=== PATIENT | female | born 1960 | race Caucasian/White ===

== ENCOUNTER → 2018-04-06 11:51 | Outpatient (CLI) | payer BC, SELFPAY ==
--- NOTE | 2018-04-06 11:55 | BI_ITS ---
MAMMOGRAPHY - BILATERAL SCREENING REASON FOR EXAM: Female, 57 years old. Routine annual screening examination. PERTINENT HISTORY: Non-contributory. TECHNIQUE: Digital bilateral breast crispin (3D mammographic acquisition) in the CC and MLO projections. 2-D mediolateral oblique (MLO) and craniocaudad (CC) views of both breasts were obtained. CAD: Full Field Digital Mammography with Computer Added Detection was performed. COMPARISON: Comparison is made with prior study dated February 02, 2016 and December 31, 2014. FINDINGS: Breast Composition: The breasts are heterogeneously dense, which may obscure small masses. There are no dominant masses or suspicious calcifications. No other significant abnormalities are identified. There has been no significant change since the prior study. BI/SCREENING MAMM (CAD), BILAT IMPRESSION: Stable bilateral screening mammogram. Yearly follow-up mammogram recommended. (A) ASSESSMENT CATEGORY: BIRADS Category 1: Negative. A letter regarding these results will be sent to the patient by the facility within 30 days. Approximately 10% of breast cancers are not detected by mammography. A normal mammogram should not delay biopsy of a clinically suspicious abnormality. [id number] Electronically Signed: Miguel Silva MD at 11:27 EST Tel [phone], Service support ,
--- OUTSIDE RECORDS SUMMARY | 2018-05-31 19:56 | XMS RPT_ITS ---
:1960 Author Organization [facility] Care Team Providers Name Role Phone Sada Black Attending Unavailable Sada Black Referring Unavailable Sada Black Primary Care Unavailable PROBLEMS PROBLEMS No Problem Records FoundPROCEDURES PROCEDURES No Procedure Records FoundRESULTS RESULTS SCREENING MAMM (CAD), Observed: 04/06/2018 Status: F Source: [place] 11:55 AM [facility] REPOSITORY [facility] Imaging Services [address] [place] [address] SCREENING MAMM (CAD), BILAT MR#: [id number] Acct: [id number] Name: ITALO MCLEAN Rep #: [id number] : 1960 F 57 From: Miguel Silva MD PCP: Sada Black DO Status: REG CLI Study: SCREENING MAMM (CAD), BILAT Date of Exam: 04/06/18 Exam# [id number] Ordering Dr: Sada Black DO MAMMOGRAPHY - BILATERAL SCREENING REASON FOR EXAM: Female, 57 years old. Routine annual screening examination. PERTINENT HISTORY: Non-contributory. TECHNIQUE: Digital bilateral breast crispin (3D mammographic acquisition) in the CC and MLO projections. 2-D mediolateral oblique (MLO) and craniocaudad (CC) views of both breasts were obtained. CAD: Full Field Digital Mammography with Computer Added Detection was performed. COMPARISON: Comparison is made with prior study dated February 02, 2016 and December 31, 2014. FINDINGS: Breast Composition: The breasts are heterogeneously dense, which may obscure small masses. There are no dominant masses or suspicious calcifications. No other significant abnormalities are identified. There has been no significant change since the prior study. BI/SCREENING MAMM (CAD), BILAT IMPRESSION: Stable bilateral screening mammogram. Yearly follow-up mammogram recommended. (A) ASSESSMENT CATEGORY: BIRADS Category 1: Negative. A letter regarding these results will be sent to the patient by the facility within 30 days. Approximately 10% of breast cancers are not detected by mammography. A normal mammogram should not delay biopsy of a clinically suspicious abnormality. [id number] Electronically Signed: Miguel Silva MD at 11:27 EST Tel [phone], Service support , CC: Sada Black DO Senior Security Architect: Signed ALLERGIES ALLERGIES DATE TYPE / CODE NAME / CODE REACTION SEVERITY SOURCE 02/24/2015 Drug Penicillins/F Rash Unknown [facility] Allergy/4160 [id number](RXN Hospital 53282(SNOMED ORM) Repository CT) 02/24/2015 Drug Sulfa Rash Unknown [facility] Allergy/4160 (Sulfonamide Hospital 73074(SNOMED Antibiotics)/ Repository CT) [id number](RX NORM) ENCOUNTERS ENCOUNTERS ADMIT/DISCHARGE ACCOUNT ADMITTING ENCOUNTER LOCATION SOURCE NUMBER CLASS 04/06/2018 [id number] [place] [facility] ing:OPBI Repository PAYERS PAYERS ENCOUNTER GUARANTOR PAYER SUBSCRIBER SOURCE 04/06/2018 FEDE J Primary FEDE J [place] [id number] S [facility] y [place]: [id number] [id number] Repository [address]iz: [address] Date:[id number] [phone] () [id number], [place] [address]SX: 04/06/2018 Secondary NOT GIVENUNK Yesi Insurance:SELF PAY [facility] Number: Effective Repository Date:2018-03-01
== END ==
PROVIDERS: Family Provider Family Medicine; PCP Family Medicine; Referring Provider Family Medicine; Visit Provider Family Medicine
DX: Z12.31 Encounter for screening mammogram for malignant neoplasm of breast (principal)
CPT/HCPCS: 77063; 77067

== ENCOUNTER → 2018-08-07 11:39 | Outpatient (CLI) | payer BC, SELFPAY ==
[2018-08-07 15:44] LABS: Absolute Lymphocyte Count 2.31 X10^3/ul (0.83-4.51); Absolute Neutrophil Count 5.2 X10^3/uL (2.0-7.7); Basophil# 0.04 X10^3/uL; Basophil% 0.5 % (0-1); Eosinophil# 0.26 X10^3/uL; Eosinophils% 3.1 % (0-5); Hematocrit 45.6 % (37-47); Hemoglobin 14.6 g/dl (12.0-15.0); Lymphocyte # 2.31 X10^3/ul (4.0); Lymphocyte % 27.6 % (19-41); Mean Corpuscular Hgb 27.6 pg (27.0-32.0); Mean Corpuscular Volume 86.2 fL (81-99); Mean Platelet Vol. 11.4 fl (6.2-12.0); Monocyte# 0.57 X10^3/uL; Monocyte% 6.8 % (0-10); Neutrophil # 5.16 X10^3/uL (2.7-7.7); Neutrophil % 61.5 % (47-70); Platelet Count 281 K/mm3 (150-450); RBC Distribution Width SD 40.5 fl (35.1-43.9); Red Blood Count 5.29 M/mm3 (4.2-5.4); White Blood Count 8.4 K/mm3 (4.4-11.0)
[2018-08-07 15:49] LABS: POSITIVE COUNT NO; POSITIVE DIFFERENTIAL NO; POSITIVE MORPHOLOGY NO
[2018-08-07 16:06] LABS: Vitamin B12 905 pg/mL (211-911); Vitamin D,25 Hydroxy 13.4 ng/mL (29.95-100.01)
[2018-08-07 16:08] LABS: ALB/GLOB Ratio 1.2 RATIO (0.9-2.4); AST(SGOT) 26 U/L (15-37); Alanine Aminotransfer ALT/SGPT 50 U/L (13-56); Albumin, Serum 4.2 g/dL (3.2-5.0); Alkaline Phosphatase 141 U/L (45-117); Anion Gap 8 (5-15); BUN 13 mg/dL (7-18); BUN/Creat Ratio 16.3 RATIO (10-20); Calcium,Total 9.1 mg/dL (8.5-10.1); Chloride 105 mmol/L (98-107); EST Glomerular Filtration Rate 79 mL/min (>60); Est Glom Filt Rate - Afr Amer 96 mL/min (>60); Free T3 3.5 pg/mL (2.18-3.98); Globulin 3.4 g/dL (2.2-4.2); Glucose 91 mg/dL (74-106); Potassium 4.4 mmol/L (3.5-5.1); Protein, Total 7.6 g/dL (6.4-8.2); Sodium Level 141 mmol/L (136-145); T4 Free Direct 0.85 ng/dL (0.76-1.46); Thyroid Stim Hormone (TSH) 1.43 uIU/mL (0.358-3.74)
== END ==
PROVIDERS: Family Provider Family Medicine; PCP Family Medicine; Visit Provider Family Medicine
DX: E53.8 Deficiency of other specified B group vitamins (principal); E55.9 Vitamin D deficiency, unspecified; D64.9 Anemia, unspecified; R53.83 Other fatigue
CPT/HCPCS: 36415; 80053; 82306; 82607; 84439; 84443; 84481; 85025

== ENCOUNTER → 2019-04-12 08:02 | Outpatient (CLI) | payer BC, SELFPAY ==
--- NOTE | 2019-04-12 08:07 | BI_ITS ---
MAMMOGRAPHY - BILATERAL SCREENING REASON FOR EXAM: Female, 58 years old. Routine annual screening examination. PERTINENT HISTORY: Non-contributory. TECHNIQUE: Digital bilateral breast dawson (3D mammographic acquisition) in the CC and MLO projections. 2-D mediolateral oblique (MLO) and craniocaudad (CC) views of both breasts were obtained. CAD: Full Field Digital Mammography with Computer Added Detection was performed. COMPARISON: Comparison is made with prior study dated April 06, 2018 and February 01, 2017. FINDINGS: Breast Composition: The breasts are heterogeneously dense, which may obscure small masses. There are no dominant masses or suspicious calcifications. No other significant abnormalities are identified. There has been no significant change since the prior study. BI/SCREEN MAMM (CAD) W/DAWSON BILAT IMPRESSION: Stable bilateral screening mammogram. Yearly follow-up mammogram recommended. (A) ASSESSMENT CATEGORY: BIRADS Category 1: Negative. A letter regarding these results will be sent to the patient by the facility within 30 days. Approximately 10% of breast cancers are not detected by mammography. A normal mammogram should not delay biopsy of a clinically suspicious abnormality. [id number] Electronically Signed: Miguel Silva, at 8:43 EST , Service support ,
== END ==
PROVIDERS: Family Provider Family Medicine; PCP Family Medicine; Referring Provider Family Medicine; Visit Provider Family Medicine
DX: Z12.31 Encounter for screening mammogram for malignant neoplasm of breast (principal)
CPT/HCPCS: 77063; 77067

== ENCOUNTER → 2019-09-09 15:54 | Outpatient (CLI) | payer BC, SELFPAY ==
--- NOTE | 2019-09-09 15:57 | CT_ITS ---
STUDY: CT BRAIN WITHOUT CONTRAST REASON FOR EXAM: Female, 59 years old. Headache. Dizziness. RADIATION DOSAGE (If Supplied By Facility): CTDIvol = ( 44.99 ) mGy, DLP = ( 745.49 ) mGycm TECHNIQUE: Transaxial CT imaging of the brain was performed without administration of intravenous contrast material. Individualized dose optimization techniques were used for this CT. COMPARISON: None. FINDINGS: There are bilateral basal ganglia calcifications (best seen on images 33 and 34 series 601). There is no acute bleed or infarct. There are normal white matter tracts. The ventricles are normal in configuration. There is no hydrocephalus. The visualized paranasal sinuses are clear. The mastoid air cells are well aerated. There is no skull fracture. CT/Brain/Head without Contrast IMPRESSION: No acute intracranial abnormality. Electronically Signed: Humberto Burger, at 16:18 EDT Tel , Service support ,
== END ==
PROVIDERS: PCP Family Medicine; Referring Provider Family Medicine; Visit Provider Family Medicine
DX: R51 Headache (principal); R42 Dizziness and giddiness; R20.0 Anesthesia of skin
CPT/HCPCS: 70450

== ENCOUNTER → 2020-02-20 13:37 | Outpatient (CLI) | payer BC, SELFPAY ==
--- NOTE | 2020-02-20 13:42 | BI_ITS ---
MAMMOGRAPHY - BILATERAL SCREENING REASON FOR EXAM: Female, 59 years old. Routine annual screening examination. PERTINENT HISTORY: Non-contributory. TECHNIQUE: Digital bilateral breast dawson (3D mammographic acquisition) in the CC and MLO projections. 2-D mediolateral oblique (MLO) and craniocaudad (CC) views of both breasts were obtained. CAD: Full Field Digital Mammography with Computer Added Detection was performed. COMPARISON: Comparison is made with prior examination dated 04/12/2019 and 04/06/2018. FINDINGS: Breast Composition: The breasts are heterogeneously dense, which may obscure small masses. There are no dominant masses or suspicious calcifications. No other significant abnormalities are identified. There has been no significant change since the prior study. BI/SCREEN MAMM (CAD) W/DAWSON BILAT IMPRESSION: Stable bilateral screening mammogram. Yearly follow-up mammogram recommended. (A) ASSESSMENT CATEGORY: BIRADS Category 1: Negative. A letter regarding these results will be sent to the patient by the facility within 30 days. Approximately 10% of breast cancers are not detected by mammography. A normal mammogram should not delay biopsy of a clinically suspicious abnormality. [id number] Electronically Signed: Miguel Silva, at 14:45 EDT , Service support ,
== END ==
PROVIDERS: PCP Family Medicine; Referring Provider Family Medicine; Visit Provider Family Medicine
DX: Z12.31 Encounter for screening mammogram for malignant neoplasm of breast (principal)
CPT/HCPCS: 77063; 77067

== ENCOUNTER → 2021-04-01 06:58 | Outpatient (CLI) | payer MEDICAID, SELFPAY ==
--- NOTE | 2021-04-01 07:01 | BI_ITS ---
MAMMOGRAPHY - BILATERAL SCREENING REASON FOR EXAM: Female, 60 years old. Routine annual screening examination. PERTINENT HISTORY: Non-contributory. TECHNIQUE: Digital bilateral breast dawson (3D mammographic acquisition) in the CC and MLO projections. 2-D mediolateral oblique (MLO) and craniocaudad (CC) views of both breasts were obtained. CAD: Full Field Digital Mammography with Computer Added Detection was performed. COMPARISON: Comparison is made with prior study dated 02/20/2020 and 04/12/2019. FINDINGS: Breast Composition: The breasts are heterogeneously dense, which may obscure small masses. There are no dominant masses or suspicious calcifications. No other significant abnormalities are identified. There has been no significant change since the prior study. BI/SCRN MAMM (CAD)W/DAWSON BILAT IMPRESSION: Stable bilateral screening mammogram. Yearly follow-up mammogram recommended. (A) ASSESSMENT CATEGORY: BIRADS Category 1: Negative. A letter regarding these results will be sent to the patient by the facility within 30 days. Approximately 10% of breast cancers are not detected by mammography. A normal mammogram should not delay biopsy of a clinically suspicious abnormality. [id number] Electronically Signed: Miguel Silva MD at 8:31 EST , Service support ,
== END ==
PROVIDERS: PCP Family Medicine; Referring Provider Family Medicine; Visit Provider Family Medicine
DX: Z12.31 Encounter for screening mammogram for malignant neoplasm of breast (principal)
CPT/HCPCS: 77063; 77067

== ENCOUNTER → 2022-04-19 | Outpatient (CLI) | payer MEDICAID, SELFPAY ==
--- NOTE | 2022-04-19 08:02 | BI_ITS ---
MAMMOGRAPHY - BILATERAL SCREENING REASON FOR EXAM: Female, 61 years old. Routine annual screening examination. PERTINENT HISTORY: Non-contributory. TECHNIQUE: Digital bilateral breast dawson (3D mammographic acquisition) in the CC and MLO projections. 2-D mediolateral oblique (MLO) and craniocaudad (CC) views of both breasts were obtained. CAD: Full Field Digital Mammography with Computer Added Detection was performed. COMPARISON: Comparison is made with prior study 04/01/2021 and 02/20/2020. FINDINGS: Breast Composition: The breasts are heterogeneously dense, which may obscure small masses. There are no dominant masses or suspicious calcifications. No other significant abnormalities are identified. There has been no significant change since the prior study. BI/SCRN MAMM (CAD)W/DAWSON BILAT IMPRESSION: Stable bilateral screening mammogram. Yearly follow-up mammogram recommended. (A) ASSESSMENT CATEGORY: BIRADS Category 1: Negative. A letter regarding these results will be sent to the patient by the facility within 30 days. Approximately 10% of breast cancers are not detected by mammography. A normal mammogram should not delay biopsy of a clinically suspicious abnormality. [id number] Electronically Signed: Miguel Silva MD at 10:41 EST ,
== END | disposition home or self-care (01) ==
LOC: OPBI 07:59
PROVIDERS: PCP Family Medicine; Visit Provider Family Medicine
DX: Z12.31 Encounter for screening mammogram for malignant neoplasm of breast (principal)
CPT/HCPCS: 77063; 77067

== ENCOUNTER → 2022-06-20 | Outpatient (CLI) | payer MEDICAID, SELFPAY ==
--- NOTE | 2022-06-20 15:10 | RAD_ITS ---
STUDY: X-RAY - LUMBAR SPINE REASON FOR EXAM: Female, 61 years old. Low back pain. TECHNIQUE: 5 view(s) of the lumbar spine were obtained. COMPARISON: None FINDINGS: Osteopenia. Normal lumbar lordosis. There is no substantial scoliosis. There is a normal alignment of the vertebrae. Diffuse facet sclerosis. Intervertebral disc space narrowing at T12-L1, L1-L2, L2-L3 and L5-S1 Cholecystectomy clips. RAD/L/S Spine Min 4 Views IMPRESSION: Osteopenia with mild lumbosacral spondylosis as described. No acute abnormality or erosive changes/fusion. Electronically Signed: Jeremias Spence, at 11:33 EST ,
== END | disposition home or self-care (01) ==
LOC: MTRAD 15:09
PROVIDERS: PCP Family Medicine; Referring Provider Family Medicine; Visit Provider Family Medicine
DX: M54.50 Low back pain, unspecified (principal)
CPT/HCPCS: 72110

== ENCOUNTER → 2023-04-20 | Outpatient (CLI) | payer MEDICAID, SELFPAY ==
--- NOTE | 2023-04-20 08:21 | BI_ITS ---
MAMMOGRAPHY - BILATERAL SCREENING REASON FOR EXAM: Female, 62 years old. Routine annual screening examination. PERTINENT HISTORY: Non-contributory. TECHNIQUE: Digital bilateral breast dawson (3D mammographic acquisition) in the CC and MLO projections. 2-D mediolateral oblique (MLO) and craniocaudad (CC) views of both breasts were obtained. CAD: Full Field Digital Mammography with Computer Added Detection was performed. COMPARISON: Comparison is made with prior study dated April 19, 2022 and April 01, 2021. FINDINGS: Breast Composition: The breasts are heterogeneously dense, which may obscure small masses. There are no dominant masses or suspicious calcifications. No other significant abnormalities are identified. There has been no significant change since the prior study. BI/SCRN MAMM (CAD)W/DAWSON BILAT IMPRESSION: Stable bilateral screening mammogram. Yearly follow-up mammogram recommended. (A) ASSESSMENT CATEGORY: BIRADS Category 1: Negative. A letter regarding these results will be sent to the patient by the facility within 30 days. Approximately 10% of breast cancers are not detected by mammography. A normal mammogram should not delay biopsy of a clinically suspicious abnormality. [id number] Electronically Signed: Miguel Silva MD at 9:45 EST ,
== END | disposition home or self-care (01) ==
LOC: OPBI 08:19
PROVIDERS: PCP Family Medicine; Referring Provider Family Medicine; Visit Provider Family Medicine
DX: Z12.31 Encounter for screening mammogram for malignant neoplasm of breast (principal)
CPT/HCPCS: 77063; 77067

== ENCOUNTER → 2024-04-21 | Outpatient (CLI) | payer MEDICAID, SELFPAY ==
--- NOTE | 2024-04-21 13:01 | BI_ITS ---
MAMMOGRAPHY - BILATERAL SCREENING REASON FOR EXAM: Female, 63 years old. Routine annual screening examination. PERTINENT HISTORY: Non-contributory. TECHNIQUE: Digital bilateral breast dawson (3D mammographic acquisition) in the CC and MLO projections. 2-D mediolateral oblique (MLO) and craniocaudad (CC) views of both breasts were obtained. CAD: Full Field Digital Mammography with Computer Added Detection was performed. COMPARISON: Comparison is made with prior study dated April 20, 2023 and April 19, 2022. FINDINGS: Breast Composition: The breasts are heterogeneously dense, which may obscure small masses. There are no dominant masses or suspicious calcifications. Stable small bilateral axillary lymph nodes. No other significant abnormalities are identified. There has been no significant change since the prior study. BI/SCRN MAMM (CAD)W/DAWSON BILAT IMPRESSION: Stable bilateral screening mammogram. Yearly follow-up mammogram recommended. (A) ASSESSMENT CATEGORY: BIRADS Category 2: Benign. A letter regarding these results will be sent to the patient by the facility within 30 days. Approximately 10% of breast cancers are not detected by mammography. A normal mammogram should not delay biopsy of a clinically suspicious abnormality. [id number] Electronically Signed: Miguel Silva MD at 14:14 EST ,
== END | disposition home or self-care (01) ==
LOC: OPBI 13:00
PROVIDERS: PCP Family Medicine; Referring Provider Family Medicine; Visit Provider Family Medicine
DX: Z12.31 Encounter for screening mammogram for malignant neoplasm of breast (principal)
CPT/HCPCS: 77063; 77067

== ENCOUNTER → 2024-06-12 | Outpatient (CLI) | payer MEDICAID, SELFPAY ==
[2024-06-12 17:44] LABS: Absolute Lymphocyte Count 2.13 X10^3/uL (0.83-4.51); Absolute Neutrophil Count 4.5 X10^3/uL (2.0-7.7); Basophil# 0.06 X10^3/uL; Basophil% 0.8 % (0-1); Eosinophil# 0.37 X10^3/uL; Eosinophils% 4.9 % (0-5); Hematocrit 44.7 % (37-47); Hemoglobin 14.1 g/dL (12.0-15.0); Lymphocyte # 2.13 X10^3/ul (0.83-4.51); Mean Corp Hgb Conc 31.5 g/dL (32-36); Mean Corpuscular Hgb 28.1 pg (27.0-32.0); Mean Platelet Vol. 10.4 fl (6.2-12.0); Monocyte# 0.57 X10^3/uL; Monocyte% 7.5 % (0-10); NRBC Flagged by Analyzer 0 % (0-5); Neutrophil # 4.45 X10^3/uL (2.7-7.7); Neutrophil % 58.4 % (47-70); Platelet Count 289 K/mm3 (150-450); RBC Distribution Width SD 42.5 fl (35.1-43.9); Red Blood Count 5.02 M/mm3 (4.2-5.4); White Blood Count 7.6 K/mm3 (4.4-11.0)
[2024-06-12 18:22] LABS: ALB/GLOB Ratio 1.1 RATIO (0.9-2.4); AST(SGOT) 27 U/L (15-37); Alanine Aminotransfer ALT/SGPT 61 U/L (13-56); Alkaline Phosphatase 148 U/L (45-117); Anion Gap 5 (5-15); BUN 19 mg/dL (7-18); BUN/Creat Ratio 22.4 RATIO (10-20); Calcium,Total 10.1 mg/dL (8.5-10.1); Chloride 106 mmol/L (98-107); Creatinine, Serum 0.85 mg/dL (0.55-1.02); EST Glomerular Filtration Rate 72 mL/min (>60); Est Glom Filt Rate - Afr Amer 87 mL/min (>60); Globulin 3.7 g/dL (2.2-4.2); Glucose 100 mg/dL (74-106); Potassium 3.8 mmol/L (3.5-5.1); Protein, Total 7.7 g/dL (6.4-8.2); Sodium Level 140 mmol/L (136-145)
== END | disposition home or self-care (01) ==
LOC: BFHLAB 14:34
PROVIDERS: PCP Family Medicine; Visit Provider Family Medicine
DX: R10.9 Unspecified abdominal pain (principal); R11.0 Nausea
CPT/HCPCS: 36415; 80053; 85025

== ENCOUNTER → 2024-07-03 | Outpatient (CLI) | payer MEDICAID, SELFPAY ==
--- NOTE | 2024-07-03 10:13 | NM_ITS ---
PROCEDURE: GASTRIC EMPTYING STUDY REASON FOR EXAM: ABDOMINAL PAIN. NAUSEA. TECHNIQUE: Following the ingestion of the radiopharmaceutical, anterior and posterior gamma camera images were acquired at 60 second intervals for a total of 60 minutes. Radiopharmaceutical: 1.1 mCi of Technetium sulfur colloid in oatmeal. COMPARISON: None. FINDINGS: Half-life: N/A Gastroesophageal reflux: None. % empty 30 minutes = 24% % empty 60 minutes = 49% NM/Gastric Emptying Study IMPRESSION: Findings suggest a normal gastric emptying study. Stomach was 49% empty at 60 minutes post ingestion of the radionuclide meal. Reading Location: [place] [address]
== END | disposition home or self-care (01) ==
LOC: NM 10:09
PROVIDERS: PCP Family Medicine; Referring Provider Family Medicine; Visit Provider Family Medicine
DX: R11.0 Nausea (principal); R10.9 Unspecified abdominal pain
CPT/HCPCS: 78264; A9541

== ENCOUNTER → 2024-12-29 | Outpatient (CLI) | payer MEDICAID, SELFPAY ==
--- NOTE | 2024-12-29 11:00 | RAD_ITS ---
PROCEDURE: KNEE 4 OR MORE VIEWS 12/29/2024 REASON FOR EXAM: KNEE PAIN TECHNIQUE: KNEE 4 OR MORE VIEWS Laterality: Right knee COMPARISON: None FINDINGS: Bones: No fracture is seen. Joints: Moderate degree of joint space narrowing of the patellofemoral joint. Effusion: No joint effusion. Soft tissues: Soft tissues are unremarkable. Other: RAD/Knee 4 or More Views IMPRESSION: Moderate degree of joint space narrowing of the patellofemoral joint. Reading Location: [id number]
== END | disposition home or self-care (01) ==
LOC: MTRAD 10:59
PROVIDERS: PCP Family Medicine; Referring Provider Family Medicine; Visit Provider Family Medicine
DX: M25.561 Pain in right knee (principal)
CPT/HCPCS: 73564

== ENCOUNTER → 2025-02-25 | Outpatient (CLI) | payer MEDICAID, SELFPAY ==
[2025-02-25 10:31] LABS: Hematocrit 44.2 % (37-47); Hemoglobin 14.6 g/dL (12.0-15.0); Immature Granulocytes Count 0.070 X10^3/uL (0.0-0.0); Mean Corp Hgb Conc 33.0 g/dL (32-36); Mean Corpuscular Volume 86.3 fL (81-99); Mean Platelet Vol. 10.4 fl (6.2-12.0); NRBC Flagged by Analyzer 0 % (0-5); Platelet Count 287 K/mm3 (150-450); RBC Distribution Width CV 12.8 % (11.6-14.6); RBC Distribution Width SD 40.2 fl (35.1-43.9); Red Blood Count 5.12 M/mm3 (4.2-5.4); White Blood Count 8.2 K/mm3 (4.4-11.0)
[2025-02-25 11:02] LABS: AST(SGOT) 27 U/L (<=31); Alanine Aminotransfer ALT/SGPT 35 U/L (<=34); Albumin, Serum 4.3 g/dL (3.4-4.8); Alkaline Phosphatase 127 U/L (35-104); Anion Gap 9 (5-15); BUN 11 mg/dL (4-19); BUN/Creat Ratio 16.7 RATIO (10-20); Calcium,Total 10.3 mg/dL (7.6-11.0); Carbon Dioxide 27.1 mmol/L (21.0-32.0); Chloride 104 mmol/L (98-108); Cholesterol 176 mg/dL (<=200); Globulin 3.1 g/dL (2.2-4.2); Glucose 91 mg/dL (70-99); Low Density Lipoprotein Calc. 96 mg/dL; Potassium 4.8 mmol/L (3.3-5.1); Triglycerides 112 mg/dL; Very Low Density Lipoprotein 22 mg/dL (5-40); Vitamin D,25 Hydroxy 46.6 ng/mL (30-100); cholesterol:hdl ratio screen 2.92
== END | disposition home or self-care (01) ==
LOC: MTLAB 08:57
PROVIDERS: PCP Family Medicine; Referring Provider Family Medicine; Visit Provider Family Medicine
DX: E78.5 Hyperlipidemia, unspecified (principal); E55.9 Vitamin D deficiency, unspecified; Z51.81 Encounter for therapeutic drug level monitoring
CPT/HCPCS: 36415; 80053; 80061; 82306; 85025